=== PATIENT | female | born 1980 | race Caucasian/White ===

== ENCOUNTER 2016-12-11 13:24 | Emergency (ER) | payer OTHER ==
[~2016-12-11] VITALS: Ht 160 cm; Wt 104.3 kg
[2016-12-11 15:50] LABS: ABSOLUTE NEUTROPHILS 10.1 thou/uL (1.4-8.2); BASOPHILS 0.6 % (0.0-2.0); EOSINOPHILS 0.8 % (0.0-3.0); HEMATOCRIT 42.5 % (37.0-47.0); HEMOGLOBIN 14.5 gm/dL (12.0-15.0); LYMPHOCYTES 11.7 % (24.0-44.0); MCH 29.3 pg (26.0-34.0); MCHC 34.2 % (28.0-37.0); MCV 85.8 fL (80.0-100.0); MONOCYTES 5.3 % (1.0-8.0); PLATELET COUNT 262 thou/uL (150-400); POLYS 81.6 % (36.0-66.0); RBC 4.95 mil/uL (4.20-5.00); RDW 13.4 % (10.5-14.5); WBC 12.4 thou/uL (4.0-11.0)
[2016-12-11 15:57] LABS: MANUAL DIFF NO
[2016-12-11 16:04] LABS: CREATININE 0.7 mg/dL (0.6-1.3); POTASSIUM 4.9 mmol/L (3.5-5.1)
[2016-12-11 16:15] LABS: URINE BILIRUBIN NEGATIVE (Negative); URINE BLOOD NEGATIVE (Negative); URINE COLOR YELLOW; URINE GLUCOSE-RANDOM* NEGATIVE (Negative); URINE KETONES NEGATIVE (Negative); URINE NITRITE NEGATIVE (Negative); URINE PROTEIN (DIPSTICK) NEGATIVE (Negative); URINE SPECIFIC GRAVITY 1.015 (1.003-1.035)
[2016-12-11] MEDS ORDERED: HYDROCODONE-AP1 EAC6 PO (17:59)
[2016-12-11] MEDS ORDERED: PHENERGAN 25 MG25 M1 PO (17:59)
[2016-12-11 18:00] VITALS: BP 115/76
[2016-12-14 14:10] LABS: CHLAMYDIA TRACHOMATIS-PCR Negative (Negative); NEISSERIA GONORRHEA-PCR Negative (Negative)
[2017-01-03] MEDS ORDERED: ONDANSETRON HCL4 M2 PO (14:18)
[2017-01-03] MEDS ORDERED: BACTRIM DS TAB1 EACH PO (14:28)
== END 2016-12-11 18:00 | disposition home or self-care (01) ==
LOC: ER 13:24
PROVIDERS: Physician Assistant
DX: R10.31 Right lower quadrant pain (principal); R10.2 Pelvic and perineal pain; Z90.710 Acquired absence of both cervix and uterus; Z88.1 Allergy status to other antibiotic agents; Z88.6 Allergy status to analgesic agent

== ENCOUNTER 2016-12-14 15:22 | Emergency (ER) | payer OTHER ==
[~2016-12-14] VITALS: Ht 160 cm; Wt 130.2 kg
[~2016-12-14 15:22] MED LIST: HYDROCODONE-AP1 EAC6 PO; PHENERGAN 25 MG25 M1 PO
[2016-12-14 15:46] LABS: URINE BILIRUBIN NEGATIVE (Negative); URINE BLOOD NEGATIVE (Negative); URINE COLOR YELLOW; URINE GLUCOSE-RANDOM* NEGATIVE (Negative); URINE KETONES NEGATIVE (Negative); URINE NITRITE NEGATIVE (Negative); URINE PROTEIN (DIPSTICK) NEGATIVE (Negative); URINE SPECIFIC GRAVITY 1.025 (1.003-1.035)
[2016-12-14 16:21] LABS: BASOPHILS 0.7 % (0.0-2.0); EOSINOPHILS 2.4 % (0.0-3.0); HEMATOCRIT 37.8 % (37.0-47.0); HEMOGLOBIN 12.8 gm/dL (12.0-15.0); LYMPHOCYTES 33.4 % (24.0-44.0); MCH 29.1 pg (26.0-34.0); MCHC 33.9 % (28.0-37.0); MCV 85.8 fL (80.0-100.0); PLATELET COUNT 277 thou/uL (150-400); POLYS 54.5 % (36.0-66.0); RBC 4.41 mil/uL (4.20-5.00); RDW 13.6 % (10.5-14.5); WBC 9.2 thou/uL (4.0-11.0)
[2016-12-14 16:25] LABS: MANUAL DIFF NO
[2016-12-14 16:46] LABS: ALBUMIN 3.5 g/dL (3.4-5.0); CREATININE 0.7 mg/dL (0.6-1.3); TOTAL BILIRUBIN 0.3 mg/dL (<0.1-1.0); TOTAL PROTEIN 7.1 g/dL (6.4-8.2)
[2016-12-14 16:52] LABS: CALCIUM 8.6 mg/dL (8.5-10.1)
[2016-12-14] MEDS ORDERED: NORCO 5-325 TA1 EACH PO (17:28)
[2016-12-14 17:46] VITALS: BP 113/72
[2017-01-03] MEDS ORDERED: ONDANSETRON HCL4 M2 PO (14:18)
[2017-01-03] MEDS ORDERED: BACTRIM DS TAB1 EACH PO (14:28)
== END 2016-12-14 17:47 | disposition home or self-care (01) ==
LOC: ER 15:22
PROVIDERS: Physician Assistant
DX: R10.31 Right lower quadrant pain (principal); R10.2 Pelvic and perineal pain; G89.29 Other chronic pain; Z90.710 Acquired absence of both cervix and uterus; Z88.1 Allergy status to other antibiotic agents; Z88.6 Allergy status to analgesic agent

== ENCOUNTER 2016-12-16 12:20 | Emergency (ER) | payer OTHER ==
[~2016-12-16] VITALS: Ht 160 cm; Wt 127.0 kg
[~2016-12-16 12:20] MED LIST changes: +NORCO 5-325 TA1 EACH PO
[2016-12-16] MEDS ORDERED: ONDANSETRON HCL4 M2 PO (14:18)
[2016-12-16 14:27] VITALS: BP 132/97
[2017-01-03] MEDS ORDERED: ONDANSETRON HCL4 M2 PO (14:18)
[2017-01-03] MEDS ORDERED: BACTRIM DS TAB1 EACH PO (14:28)
== END 2016-12-16 14:28 | disposition home or self-care (01) ==
LOC: ER 12:20
DX: R10.31 Right lower quadrant pain (principal); R11.0 Nausea; Z88.0 Allergy status to penicillin; Z88.8 Allergy status to other drugs, medicaments and biological substances; Z90.710 Acquired absence of both cervix and uterus

== ENCOUNTER 2018-02-08 16:39 | Emergency (ER) | payer OTHER ==
[~2018-02-08] VITALS: Ht 160 cm; Wt 104.3 kg
[~2018-02-08 16:39] MED LIST changes: +BACTRIM DS TAB1 EACH PO; +ONDANSETRON HCL4 M2 PO
[2018-02-08 17:18] LABS: ABSOLUTE NEUTROPHILS 7.4 thou/uL (1.4-8.2); BASOPHILS 0.8 % (0.0-2.0); EOSINOPHILS 1.1 % (0.0-3.0); HEMATOCRIT 41.3 % (37.0-47.0); HEMOGLOBIN 14.1 gm/dL (12.0-15.0); LYMPHOCYTES 28.5 % (24.0-44.0); MCH 29.7 pg (26.0-34.0); MCHC 34.2 g/dL (28.0-37.0); MCV 86.7 fL (80.0-100.0); MONOCYTES 7.1 % (1.0-8.0); PLATELET COUNT 301 thou/uL (150-400); POLYS 62.5 % (36.0-66.0); RBC 4.76 mil/uL (4.20-5.00); RDW 13.8 % (10.5-14.5); WBC 11.8 thou/uL (4.0-11.0)
[2018-02-08 17:25] LABS: CALCIUM 9.8 mg/dL (8.5-10.1); CREATININE 0.8 mg/dL (0.6-1.0); POTASSIUM 4.1 mmol/L (3.5-5.1)
[2018-02-08 17:31] LABS: ALBUMIN 4.2 g/dL (3.4-5.0); TOTAL BILIRUBIN 0.3 mg/dL (<0.1-1.0); TOTAL PROTEIN 8.8 g/dL (6.4-8.2)
== END 2018-02-08 18:01 | disposition home or self-care (01) ==
LOC: ER 16:39
PROVIDERS: Emergency Medicine
DX: R51 Headache (principal); Z90.710 Acquired absence of both cervix and uterus; Z88.1 Allergy status to other antibiotic agents; Z88.6 Allergy status to analgesic agent